=== PATIENT | female | born 1985 | race African-American/Black ===

== ENCOUNTER 2020-12-21 04:37 | Emergency (ER) | payer OTHER ==
[2020-12-21] MEDS ORDERED: Ketorolac Tromethamine 30 MG/ML VIAL ONE (05:16)
[2020-12-21] MEDS ORDERED: Dexamethasone 10 MG/ML VIAL ONE (05:16)
[2020-12-21 06:02] LABS: SARS-CoV-2 NAA Rapid Test Not Detected (NotDetected)
== END 2020-12-21 05:42 | disposition home or self-care (01) ==
LOC: CSHERS 04:37
DX: M79.10 Myalgia, unspecified site (principal); D89.9 Disorder involving the immune mechanism, unspecified; Z20.822 Contact with and (suspected) exposure to COVID-19
CPT/HCPCS: 96372; 99283; J1100; J1885; U0002

== ENCOUNTER 2021-05-06 12:22 | Observation (INO) | payer OTHER ==
[2021-05-06 13:04] LABS: Hemoglobin 8.3 g/dL (12.0-15.5); MDiff Complete? YES; Mean Corpuscular HGB CONC 31.9 g/dL (32.0-36.0); Mean Corpuscular Hemoglobin 25.2 pg (27.0-33.0); Mean Platelet Volume 11.3 fl (7.4-10.4); Platelet Count 232 10x3/uL (150-450); RBC Distribution Width 17.3 % (11.5-14.5); Red Blood Cell (RBC) Count 3.29 10x6/uL (3.90-5.03); White Blood Cell (WBC) Count 5.9 10x3/uL (3.5-10.5)
[2021-05-06 13:23] LABS: ALT (SGPT) 30 U/L (8-55); AST (SGOT) 31 U/L (5-34); Albumin 3.2 g/dL (3.5-5.0); Alkaline Phosphatase 135 U/L (40-110); Anion Gap 10 mmol/L (10-20); BUN (Urea Nitrogen) 20 mg/dL (7.0-18.7); Bilirubin, Total 0.2 mg/dL (0.2-1.2); Calc. Creatinine Clearance 0 mL/min (70-130); Carbon Dioxide 18 mmol/L (22-29); Chloride 110 mmol/L (98-107); Globulin 6.8 g/dL (2.4-3.5); Glucose 83 mg/dL (70-105); Lipase 108 U/L (8-78); Potassium 4.1 mmol/L (3.5-5.1); Sodium 134 mmol/L (136-145)
[2021-05-06 13:44] LABS: CKMB 1.7 ng/mL (0-6.6)
[2021-05-06] MEDS ORDERED: Morphine 4 MG/ML VIAL ONE (13:46)
[2021-05-06] MEDS ORDERED: Aspirin 325 MG TAB ONE (13:46)
[2021-05-06 14:15] LABS: Anisocytosis SLIGHT = 6-15 cells (100X) (0-5/hpf); Eosinophils 4 % (0-10); Hypochromia SLIGHT = 6-15 cells (100X) (0-5/hpf); Lymphocytes 49 % (21-51); Microcytosis SLIGHT = 6-15 cells (100X) (0-5/hpf); Monocytes 12 % (0-10); Neutrophil 35 % (42-75)
[2021-05-06 14:16] LABS: Platelet Morphology Comment Appears Adequate
[2021-05-06 15:59] LABS: SARS-CoV-2 NAA Rapid Test Not Detected (NotDetected)
[2021-05-06 16:13] LABS: Troponin I 0.036 ng/mL (< 0.028)
[2021-05-06] MEDS ORDERED: Insulin Regular 300 UNITS/3 ML VIAL SC PRN (18:34)
[2021-05-06] MEDS ORDERED: Dextrose 5% in Water 1,000 ML IV PRN (18:34)
[2021-05-06] MEDS ORDERED: Dextrose 50% Abboject 50 ML SYRINGE SLOW IVP PRN (18:34)
[2021-05-06 19:08] LABS: Troponin I 0.034 ng/mL (< 0.028)
[2021-05-06 20:21] VITALS: BMI 25.6
[2021-05-06] MEDS: Hydroxychloroquine Sulfate 200 MG TAB PO SCH (20:51)
[2021-05-06] MEDS: Mycophenolate 250 MG CAP PO SCH (20:51)
[2021-05-06] MEDS: Famotidine 20 MG TAB PO SCH (20:51)
[2021-05-06] MEDS: Sodium Chloride 0.9% 1,000 ML IV SCH (20:54)
[2021-05-06] MEDS: Brimonidine Tartrate 0.2% Ophth Soln 5 ml Bottle EA EYE SCH (22:00)
[2021-05-06] MEDS: Latanoprost 0.005% Ophth Soln 2.5 ml Bottle EA EYE SCH (22:05)
[2021-05-06] MEDS: Timolol 0.5% Ophth Soln 5 ml Bottle EA EYE SCH (22:21)
[2021-05-07] MEDS ORDERED: Nitroglycerin 0.4 MG TAB (25 Tab Bottle) SL PRN (02:26)
[2021-05-07] MEDS: HYDROcodone/Acetaminophen 5/325 mg Tablet PO PRN ×2 (02:34→14:58)
[2021-05-07 05:34] LABS: #Eosinphils 0.1 10x3/uL (0.0-0.5); #Monocytes 0.5 10x3/uL (0.0-1.1); #Neutrophils 3.4 10x3/uL (1.5-8.4); %Basophils 0.6 % (0.0-2.0); %Eosinophils 2.2 % (0.0-6.0); %Lymphocytes 35.4 % (18.0-47.0); %Monocytes 7.3 % (0.0-10.0); %Neutrophils 53.7 % (40.0-75.0); Hemoglobin 7.6 g/dL (12.0-15.5); Mean Corpuscular HGB CONC 31.9 g/dL (32.0-36.0); Mean Corpuscular Hemoglobin 25.4 pg (27.0-33.0); Mean Corpuscular Volume 79.6 fl (81.6-98.3); Platelet Count 208 10x3/uL (150-450); RBC Distribution Width 17.7 % (11.5-14.5); Red Blood Cell (RBC) Count 2.99 10x6/uL (3.90-5.03); White Blood Cell (WBC) Count 6.3 10x3/uL (3.5-10.5)
[2021-05-07 05:42] LABS: Anion Gap 10 mmol/L (10-20); BUN (Urea Nitrogen) 20 mg/dL (7.0-18.7); Calc. Creatinine Clearance 88 mL/min (70-130); Calcium 8.2 mg/dL (7.8-10.44); Carbon Dioxide 16 mmol/L (22-29); Chloride 114 mmol/L (98-107); Glucose 86 mg/dL (70-105); Iron 33 ug/dL (50-170); Iron Binding Capacity, Total 141 mcg/dL (265-497); Magnesium 1.8 mg/dL (1.6-2.6); Sodium 136 mmol/L (136-145)
[2021-05-07] MEDS ORDERED: FLU VACC QS2021-22(6MOS UP)/PF 60 MCG/0.5 ML SYRINGE IM ONE (09:00)
[2021-05-07] MEDS: Ferrous Sulfate 325 MG TAB PO SCH (09:23)
[2021-05-07] MEDS: predniSONE 20 MG TAB PO SCH (09:23)
[2021-05-07] MEDS: Hydroxychloroquine Sulfate 200 MG TAB PO SCH ×2 (09:23→21:10)
[2021-05-07] MEDS: Aspirin Chewable 81 MG TAB PO SCH (09:23)
[2021-05-07] MEDS: Famotidine 20 MG TAB PO SCH ×2 (09:23→21:10)
[2021-05-07] MEDS: Mycophenolate 250 MG CAP PO SCH ×2 (09:23→21:10)
[2021-05-07] MEDS: Brimonidine Tartrate 0.2% Ophth Soln 5 ml Bottle EA EYE SCH ×2 (09:27→21:05)
[2021-05-07] MEDS: Timolol 0.5% Ophth Soln 5 ml Bottle EA EYE SCH ×2 (09:28→21:15)
[2021-05-07] MEDS: Sodium Chloride 0.9% 1,000 ML IV SCH ×2 (09:29→23:43)
[2021-05-07] MEDS: Latanoprost 0.005% Ophth Soln 2.5 ml Bottle EA EYE SCH (21:00)
[2021-05-08 04:40] LABS: #Monocytes 0.7 10x3/uL (0.0-1.1); #Neutrophils 5.5 10x3/uL (1.5-8.4); %Basophils 0.4 % (0.0-2.0); %Eosinophils 0.1 % (0.0-6.0); %Lymphocytes 24.8 % (18.0-47.0); Hemoglobin 8.1 g/dL (12.0-15.5); Mean Corpuscular HGB CONC 32.4 g/dL (32.0-36.0); Mean Corpuscular Hemoglobin 25.8 pg (27.0-33.0); Mean Corpuscular Volume 79.6 fl (81.6-98.3); Mean Platelet Volume 11.2 fl (7.4-10.4); Platelet Count 217 10x3/uL (150-450); RBC Distribution Width 17.8 % (11.5-14.5); Red Blood Cell (RBC) Count 3.14 10x6/uL (3.90-5.03); White Blood Cell (WBC) Count 8.3 10x3/uL (3.5-10.5)
[2021-05-08 05:08] LABS: Anion Gap 11 mmol/L (10-20); BUN (Urea Nitrogen) 23 mg/dL (7.0-18.7); Calc. Creatinine Clearance 83 mL/min (70-130); Calcium 8.4 mg/dL (7.8-10.44); Carbon Dioxide 18 mmol/L (22-29); Chloride 113 mmol/L (98-107); Glucose 87 mg/dL (70-105); Potassium 4.8 mmol/L (3.5-5.1); Sodium 137 mmol/L (136-145)
[2021-05-08 05:22] LABS: Free T4 (Free Thyroxine) 0.76 ng/dL (0.70-1.48)
[2021-05-08] MEDS: Mycophenolate 250 MG CAP PO SCH (08:21)
[2021-05-08] MEDS: Aspirin Chewable 81 MG TAB PO SCH (08:21)
[2021-05-08] MEDS: Hydroxychloroquine Sulfate 200 MG TAB PO SCH (08:21)
[2021-05-08] MEDS: predniSONE 20 MG TAB PO SCH (08:22)
[2021-05-08] MEDS: Famotidine 20 MG TAB PO SCH (08:22)
[2021-05-08] MEDS: HYDROcodone/Acetaminophen 5/325 mg Tablet PO PRN (08:22)
[2021-05-08] MEDS: Ferrous Sulfate 325 MG TAB PO SCH (08:22)
[2021-05-08] MEDS: Brimonidine Tartrate 0.2% Ophth Soln 5 ml Bottle EA EYE SCH (08:24)
[2021-05-08] MEDS: Timolol 0.5% Ophth Soln 5 ml Bottle EA EYE SCH (08:25)
[2021-05-08] MEDS: Sodium Chloride 0.9% 1,000 ML IV SCH (11:55)
[2021-05-08 19:12] VITALS: BP 115/78; TEMP 98.4
== END 2021-05-08 18:00 | disposition home or self-care (01) ==
LOC: CSHERS 12:22 → CSHTELE 16:16
PROVIDERS: ADMIT Internal Medicine; ATTEND Family Medicine
DX: R07.89 Other chest pain (principal); M32.9 Systemic lupus erythematosus, unspecified; H40.9 Unspecified glaucoma; E11.9 Type 2 diabetes mellitus without complications; E78.5 Hyperlipidemia, unspecified; K21.9 Gastro-esophageal reflux disease without esophagitis; Z79.4 Long term (current) use of insulin; D50.9 Iron deficiency anemia, unspecified
CPT/HCPCS: 36415; 36416; 71045; 76705; 80048; 80053; 82553; 82728; 83540; 83550; 83690; 83735; 84439; 84443; 84481; 84484; 85025; 93005; 93010; 93306; 94760; 96374; G0378; J2270; J7050; J7512; J7517; U0002

== ENCOUNTER 2022-01-07 12:18 | Emergency (ER) | payer OTHER ==
[2022-01-07 13:22] LABS: Hemoglobin 7.9 g/dL (12.0-15.5); Mean Corpuscular HGB CONC 32.5 g/dL (32.0-36.0); Mean Corpuscular Hemoglobin 26.2 pg (27.0-33.0); Mean Corpuscular Volume 80.7 fl (81.6-98.3); Mean Platelet Volume 10.7 fl (7.4-10.4); Platelet Count 206 10x3/uL (150-450); RBC Distribution Width 14.9 % (11.5-14.5); Red Blood Cell (RBC) Count 3.01 10x6/uL (3.90-5.03); White Blood Cell (WBC) Count 4.6 10x3/uL (3.5-10.5)
[2022-01-07 13:31] LABS: MDiff Complete? YES
[2022-01-07 13:38] LABS: ALT (SGPT) 12 U/L (8-55); AST (SGOT) 21 U/L (5-34); Albumin 3.5 g/dL (3.5-5.0); Alkaline Phosphatase 88 U/L (40-110); Anion Gap 11 mmol/L (10-20); BUN (Urea Nitrogen) 14 mg/dL (7.0-18.7); Bilirubin, Total 0.1 mg/dL (0.2-1.2); Calc. Creatinine Clearance 0 mL/min (70-130); Calcium 8.9 mg/dL (7.8-10.44); Carbon Dioxide 20 mmol/L (22-29); Chloride 109 mmol/L (98-107); Estimated GFR 58; Globulin 5.7 g/dL (2.4-3.5); Glucose 87 mg/dL (70-105); Potassium 4.2 mmol/L (3.5-5.1); Protein, Total 9.2 g/dL (6.0-8.3); Sodium 136 mmol/L (136-145)
[2022-01-07 16:42] LABS: Band 1 % (5-11); Eosinophils 1 % (0-10); Lymphocytes 40 % (21-51); Monocytes 3 % (0-10); Neutrophil 54 % (42-75); Reactive Lymphocytes 1 % (0-10)
[2022-01-07 16:43] LABS: Ovalocytes SLIGHT = 2-5 cells (100X) (0-1/hpf); Platelet Morphology Comment Appears Adequate
== END 2022-01-07 19:17 | disposition home or self-care (01) ==
LOC: CSHERS 12:18
DX: D64.9 Anemia, unspecified (principal)
CPT/HCPCS: 36415; 36430; 71045; 80053; 84484; 85025; 86850; 86900; 86901; 93005; P9016

== ENCOUNTER 2022-04-16 20:59 | Observation (INO) | payer OTHER ==
[~2022-04-16 20:59] MED LIST: Iopamidol 370 76% 75 ML VIAL FS ONE
[2022-04-16 21:45] LABS: #Monocytes 0.4 10x3/uL (0.0-1.1); #Neutrophils 3.2 10x3/uL (1.5-8.4); %Basophils 0.5 % (0.0-2.0); %Eosinophils 0.7 % (0.0-6.0); %Lymphocytes 33.2 % (18.0-47.0); %Monocytes 7.8 % (0.0-10.0); %Neutrophils 57.6 % (40.0-75.0); Hemoglobin 7.7 g/dL (12.0-15.5); Mean Corpuscular HGB CONC 31.6 g/dL (32.0-36.0); Mean Corpuscular Hemoglobin 25.3 pg (27.0-33.0); Mean Corpuscular Volume 80.3 fl (81.6-98.3); Mean Platelet Volume 10.7 fl (7.4-10.4); Platelet Count 240 10x3/uL (150-450); RBC Distribution Width 15.2 % (11.5-14.5); Red Blood Cell (RBC) Count 3.04 10x6/uL (3.90-5.03); White Blood Cell (WBC) Count 5.5 10x3/uL (3.5-10.5)
[2022-04-16 22:00] LABS: BHCG - Serum Negative (NEGATIVE); Pregs Control Background? CLEAR/WHITE (CLR/WHITE); Pregs Control Bar Appear? YES (CONTROL BAR)
[2022-04-16 22:07] LABS: ALT (SGPT) 17 U/L (8-55); AST (SGOT) 17 U/L (5-34); Albumin 3.2 g/dL (3.5-5.0); Alkaline Phosphatase 82 U/L (40-110); Anion Gap 10 mmol/L (10-20); BUN (Urea Nitrogen) 21 mg/dL (7.0-18.7); Bilirubin, Total 0.2 mg/dL (0.2-1.2); Calc. Creatinine Clearance 0 mL/min (70-130); Calcium 8.5 mg/dL (7.8-10.44); Carbon Dioxide 19 mmol/L (22-29); Chloride 113 mmol/L (98-107); Estimated GFR 57; Globulin 5.5 g/dL (2.4-3.5); Glucose 97 mg/dL (70-105); Potassium 3.9 mmol/L (3.5-5.1); Protein, Total 8.7 g/dL (6.0-8.3); Sodium 138 mmol/L (136-145)
[2022-04-16 22:18] LABS: CKMB 0.7 ng/mL (0-6.6)
[2022-04-16] MEDS ORDERED: Guaifenesin DM 100-10/5 ML UDCUP PO PRN (23:56)
[2022-04-16] MEDS ORDERED: Senokot S 8.6-50 MG TAB PO PRN (23:56)
[2022-04-16] MEDS ORDERED: Ondansetron PF 4 MG/2 ML Vial IVP PRN (23:56)
[2022-04-16] MEDS ORDERED: Acetaminophen 325 MG TAB PO PRN (23:56)
[2022-04-16] MEDS ORDERED: Calcium Carbonate 500 MG ChewTAB PO PRN (23:56)
[2022-04-17 00:16] LABS: SARS-CoV-2 NAA Rapid Test Not Detected (NotDetected)
[2022-04-17 00:29] VITALS: BMI 27.3
[2022-04-17] MEDS ORDERED: Ketorolac Tromethamine 30 MG/ML VIAL IVP SCH (00:30)
[2022-04-17] MEDS ORDERED: FLU VACC QS2022-23(6MOS UP)/PF 60 MCG/0.5 ML SYRINGE IM ONE (01:00)
[2022-04-17 01:39] LABS: SARS-CoV-2 NAA Rapid Test Not Detected (NotDetected)
[2022-04-17 04:47] LABS: Cardiac Risk 5.4 (Less than 4.5); Cholesterol 152 mg/dl (< 200 Desired); HDL Cholesterol 28 mg/dL (>60 Neg Risk); LDL Cholesterol, Calculated 103 mg/dL; Triglycerides 104 mg/dL (Less than 150)
[2022-04-17 05:02] LABS: CRP (Inflammatory) Less than 0.50 mg/dL (= or < 0.5)
[2022-04-17 05:07] LABS: CKMB 0.8 ng/mL (0-6.6)
[2022-04-17] MEDS ORDERED: Levothyroxine Sodium 50 MCG TAB PO SCH (06:00)
[2022-04-17] MEDS ORDERED: HumaLOG 300 UNITS/3 ML VIAL SC PRN ×2 (07:32)
[2022-04-17] MEDS ORDERED: Dextrose 5% in Water 1,000 ML IV PRN (07:32)
[2022-04-17] MEDS ORDERED: Dextrose 50% Abboject 50 ML SYRINGE SLOW IVP PRN (07:32)
[2022-04-17] MEDS ORDERED: Ferrous Sulfate 325 MG TAB PO SCH (08:00)
[2022-04-17] MEDS ORDERED: Brimonidine Tartrate 0.2% Ophth Soln 5 ml Bottle EA EYE SCH (09:00)
[2022-04-17] MEDS ORDERED: Hydroxychloroquine Sulfate 200 MG TAB PO SCH (09:00)
[2022-04-17] MEDS ORDERED: Mycophenolate 250 MG CAP PO SCH (09:00)
[2022-04-17] MEDS ORDERED: Timolol 0.5% Ophth Soln 5 ml Bottle EA EYE SCH (09:00)
[2022-04-17 09:57] LABS: CKMB 0.9 ng/mL (0-6.6)
[2022-04-17 11:30] LABS: Free T4 (Free Thyroxine) 1.05 ng/dL (0.70-1.48)
[2022-04-17 13:25] VITALS: TEMP 98.5
[2022-04-17 13:29] LABS: Hemoglobin A1c 5.4 % (4.0-6.0)
[2022-04-17 17:05] VITALS: BP 92/61
[2022-04-17] MEDS ORDERED: Latanoprost 0.005% Ophth Soln 2.5 ml Bottle EA EYE SCH (21:00)
== END 2022-04-17 18:51 | disposition home or self-care (01) ==
LOC: CSHERS 20:59 → CSHTELE 23:56 → UNDOADMOB 04-17 00:23 → CSHTELE 04-17 00:23
PROVIDERS: ADMIT Student in an Organized Health Care Education/Training Program; ATTEND Nurse Practitioner Family
DX: R07.81 Pleurodynia (principal); N18.2 Chronic kidney disease, stage 2 (mild); R77.8 Other specified abnormalities of plasma proteins; M32.9 Systemic lupus erythematosus, unspecified; D50.9 Iron deficiency anemia, unspecified; E03.9 Hypothyroidism, unspecified; R91.8 Other nonspecific abnormal finding of lung field; Z86.69 Personal history of other diseases of the nervous system and sense organs; Z88.2 Allergy status to sulfonamides; Z79.82 Long term (current) use of aspirin; Z79.899 Other long term (current) drug therapy; Z20.822 Contact with and (suspected) exposure to COVID-19; R59.1 Generalized enlarged lymph nodes; E11.22 Type 2 diabetes mellitus with diabetic chronic kidney disease
CPT/HCPCS: 36415; 36416; 71045; 71275; 80053; 80061; 82553; 83036; 84145; 84439; 84443; 84481; 84484; 84703; 85025; 85379; 86140; 93005; 93306; 96374; G0378; J1885; J7517; Q9967; U0002

== ENCOUNTER 2022-08-18 01:04 | Emergency (ER) | payer OTHER ==
[2022-08-18 01:33] LABS: #Eosinphils 0.2 10x3/uL (0.0-0.5); #Monocytes 0.4 10x3/uL (0.0-1.1); #Neutrophils 3.5 10x3/uL (1.5-8.4); %Basophils 0.5 % (0.0-2.0); %Eosinophils 3.5 % (0.0-6.0); %Lymphocytes 33.5 % (18.0-47.0); %Monocytes 5.9 % (0.0-10.0); %Neutrophils 56.3 % (40.0-75.0); Hemoglobin 8.3 g/dL (12.0-15.5); Mean Corpuscular HGB CONC 32.2 g/dL (32.0-36.0); Mean Corpuscular Volume 80.9 fl (81.6-98.3); Mean Platelet Volume 11.7 fl (7.4-10.4); Platelet Count 243 10x3/uL (150-450); RBC Distribution Width 15.9 % (11.5-14.5); Red Blood Cell (RBC) Count 3.19 10x6/uL (3.90-5.03); White Blood Cell (WBC) Count 6.3 10x3/uL (3.5-10.5)
[2022-08-18 01:59] LABS: ALT (SGPT) 11 U/L (8-55); AST (SGOT) 24 U/L (5-34); Albumin 3.4 g/dL (3.5-5.0); Alkaline Phosphatase 94 U/L (40-110); Anion Gap 14 mmol/L (10-20); BUN (Urea Nitrogen) 19 mg/dL (7.0-18.7); Bilirubin, Total Less than 0.2 mg/dL (0.2-1.2); Calc. Creatinine Clearance 0 mL/min (70-130); Calcium 8.7 mg/dL (7.8-10.44); Carbon Dioxide 19 mmol/L (22-29); Chloride 108 mmol/L (98-107); Estimated GFR 63; Globulin 6.3 g/dL (2.4-3.5); Glucose 86 mg/dL (70-105); Potassium 4.7 mmol/L (3.5-5.1); Protein, Total 9.7 g/dL (6.0-8.3); Sodium 136 mmol/L (136-145)
[2022-08-18 04:51] LABS: Troponin I Less than 0.010 ng/mL (< 0.028)
[2022-08-18] MEDS ORDERED: Iopamidol 370 76% 100 ML VIAL ONE (09:28)
== END 2022-08-18 05:31 | disposition home or self-care (01) ==
LOC: CSHERS 01:04
DX: R07.89 Other chest pain (principal)
CPT/HCPCS: 71045; 71275; 80053; 84484; 85025; 93005; Q9967

== ENCOUNTER → 2023-11-28 | Emergency (ER) | payer OTHER ==
[~2023-11-28] MED LIST changes: -Iopamidol 370 76% 75 ML VIAL FS ONE; +Morphine 2 MG/ML VIAL ONE; +Sodium Bicarb 50 MEQ/50 ML Abboject 8.4% SYRINGE ONE; +Sodium Bicarb 50 mEq/50 ML VIAL ONE
[2023-11-28 03:35] LABS: Hematocrit 23.5 % (34.9-44.5); Hemoglobin 7.4 g/dL (12.0-15.5); MDiff Complete? YES; Mean Corpuscular HGB CONC 31.5 g/dL (32.0-36.0); Mean Corpuscular Hemoglobin 25.3 pg (27.0-33.0); Mean Corpuscular Volume 80.2 fL (81.6-98.3); Mean Platelet Volume 11.4 fL (7.4-10.4); Platelet Count 108 10x3/uL (150-450); RBC Distribution Width 15.7 % (11.5-14.5); Red Blood Cell (RBC) Count 2.93 10x6/uL (3.90-5.03); White Blood Cell (WBC) Count 5.7 10x3/uL (3.5-10.5)
[2023-11-28 03:40] LABS: ALT (SGPT) 12 U/L (8-55); AST (SGOT) 20 U/L (5-34); Alkaline Phosphatase 90 U/L (40-110); Anion Gap 12 mmol/L (10-20); BUN (Urea Nitrogen) 45 mg/dL (7.0-18.7); Bilirubin, Total 0.2 mg/dL (0.2-1.2); Calc. Creatinine Clearance 0 mL/min (70-130); Calcium 8.4 mg/dL (7.8-10.44); Carbon Dioxide 13 mmol/L (22-29); Chloride 117 mmol/L (98-107); Estimated GFR 21; Globulin 6.4 g/dL (2.4-3.5); Glucose 93 mg/dL (70-105); Protein, Total 9.4 g/dL (6.0-8.3); Sodium 137 mmol/L (136-145)
[2023-11-28 03:46] LABS: Troponin I Less than 0.010 ng/mL (< 0.028)
[2023-11-28 04:14] LABS: Band 3 % (5-11); Lymphocytes 57 % (21-51); Monocytes 6 % (0-10); Neutrophil 31 % (42-75); Reactive Lymphocytes 3 % (0-10)
[2023-11-28 04:22] LABS: Hypochromia SLIGHT = 6-15 cells (100X) (0-5/hpf); Microcytosis SLIGHT = 6-15 cells (100X) (0-5/hpf); Ovalocytes SLIGHT = 2-5 cells (100X) (0-1/hpf); Platelet Adequacy Comment Appears Decreased; Rouleaux Formation SLIGHT = 1-5 cells (100X) (None Seen)
[2023-11-28 09:34] LABS: Anion Gap 11 mmol/L (10-20); BUN (Urea Nitrogen) 39 mg/dL (7.0-18.7); Calc. Creatinine Clearance 0 mL/min (70-130); Calcium 8.2 mg/dL (7.8-10.44); Carbon Dioxide 17 mmol/L (22-29); Chloride 115 mmol/L (98-107); Estimated GFR 29; Glucose 78 mg/dL (70-105); Potassium 4.2 mmol/L (3.5-5.1); Sodium 139 mmol/L (136-145)
[2023-11-28 09:40] LABS: Troponin I Less than 0.010 ng/mL (< 0.028)
== END ==
LOC: CSHERS 02:49
DX: N17.9 Acute kidney failure, unspecified (principal); E86.0 Dehydration; R07.9 Chest pain, unspecified; E11.9 Type 2 diabetes mellitus without complications
CPT/HCPCS: 36415; 71045; 80053; 84484; 85025; 85379; 93005; 96361; 96374; 96375; J2272